=== PATIENT | female | born 1945 | race Caucasian/White ===

== ENCOUNTER 2020-08-05 15:36 | Inpatient (IN) | payer OTHER ==
--- OUTSIDE RECORDS SUMMARY | 2020-08-05 18:13 | XMS REPORT | Continuity of Care Document ---
:1945 Author Organization [facility] t Address [address] [place] [address] Care Team Providers Name Role Phone Sylvain Elise Primary Care Physician Claudio MUÑIZ Attending Clinician BENNIE BERNABE Attending Clinician Unavailable BENNIE BERNABE Admitting Clinician Unavailable Problems Condition Condition Condition Status Onset Resolution Last Treating Co mments Source Name Details Category Date Date Treatment Clinician Date Wound Wound Disease Active [facility] infection infection 3-07 [facility] Center Infection Infection Disease Active [facility] Postoperat Postoperat Disease Active 2015-[address] marianne marianne 0-12 [facility] - infection infection 00:00: Medi bebeto of wound of wound 00 Center of sternum of sternum Chest Chest Disease Active [facility] pain, pain, 8-29 [facility] - unspecifie unspecifie 00:00: Me dical d type d type 00 Center Ischemic Ischemic Disease [facility] heart heart 8[facility]17 [facility] - disease disease 00:00: Medical 00 Center Allergies, Adverse Reactions, Alerts Allergy Allergy Status Severity Reaction(s) Onset Inactive Treating Comm ents Source Name Type Date Date Clinician Ciproflo Propensi Active Itching, 2015-[address] [facility] [address] xacin ty to Rash 0-11 [facility] - adverse 00:00: Medical reaction 00 Center s Metronid Propensi Active Itching, 2015-[address] [facility] azole ty to Rash 0-11 [facility] - adverse 00:00: Medical reaction 00 Center s Amoxicil Drug Active Itching, [facility] miguel Allergy Rash 8-17 [facility] - 00:00: Medical 00 Center Social History Social Habit Start Date Stop Date Quantity Comments Source Sex Assigned At [facility] Medical [place] Tobacco use and 2017-06-05 2017-06-05 Never used [facility] kes - exposure 00:00:00 00:00:00 Medical [place] Alcohol intake 2017-06-05 2017-06-05 Current [facility] - 00:00:00 00:00:00 non-drinker of Medical Ce nter alcohol (finding) Smoking Status Start Date Stop Date Source [facility] smoker [facility] [place] Medications Ordered Filled Start Stop Current Ordering Indication Dosage Frequency Signature Comments Components Source Medication Medication Date Date Medication? Clinician (SIG) Name Name sertraline Yes 50mg QD Take [address] (ZOLOFT) 50 3-19 by mouth [facility] - MG tablet 07:32: daily. Medica l 49 [place] magnesium Yes 400mg QD Take [address] [facility] [address] oxide 3-19 mg by [facility] - (MAG-OX) 07:32: mouth Medical 400 mg 49 every Center tablet evening. amLODIPine Yes 2.5mg QD Take 2.[address] (NORVASC) 3-19 mg by [facility] - 2.5 MG 07:32: mouth Medical tablet 49 daily. [place] aspirin 81 Yes 81mg QD Take [address] MG EC 3-19 by mouth [facility] - tablet 07:32: daily. Medical [address] [place] [address] furosemide Yes 20mg QD Take [address] (LASIX) 20 3-19 by mouth [facility] - MG tablet 07:32: daily. Medica l 49 [place] atorvastati Yes 40mg QD Take [address] [facility] [address] n (LIPITOR) 3-19 by mouth [facility] - 40 MG 07:32: daily. Medical tablet 49 [place] metoprolol Yes 25mg Take [address] (LOPRESSOR) 3-19 by mouth [facility] - 25 MG 07:32: once in Medical tablet 49 evening . [place] cholecalcif Yes 5000U QD Take 5,[address] [facility] [address] jonel, 3-19 Units by [facility] - vitamin D3, 07:32: mouth Medic al 5,000 unit 49 daily. Center Tab thyroid, 2015- Yes 60mg QD Take [address] [facility] pork, 60 mg 0-18 tablet (60 [facility] kes - Tab 00:00: mg total) Medical 00 by mouth Center daily. Procedures This patient has no known procedures. Encounters Start End Encounter Admission Attending Care Care Encounter Source Date/Time Date/Time Type Type Clinicians Facility Department ID 2018-10-12 2018-10-13 Emergency [facility] [id number] 21:29:48 00:37:00 [place] [id number] [place] [id number] [place] [id number] Results Test Description Test Time Test Comments Results Result Comments Source AFB CULTURE + SMEAR 2017-07-12 12:45:00 Test Item Value Reference Range Interpretation Comme nts CULTURE (BEAKER) (test code = 1095) No acid-fast bacilli isolated i n 42 days AFB SMEAR (BEAKER) (test code = 994) No acid fast bacilli seen FUNGUS CULTURE + [id number] 15:05:00 Test Item Value Reference Range Interpretation Comments CULTURE (BEAKER) (test No fungus isolated in code = 1095) 28 days FUNGUS SMEAR (BEAKER) No fungi seen (test code = 1406) ANAEROBIC [id number] 00:12:00 Test Item Value Reference Range Interpretation Comments CULTURE (BEAKER) (test No anaerobes isolated code = 1095) SURGICALLY OBTAINED CULTURE + GRAM [id number] 12:50:00 Test Item Value Reference Range Interpretation Comments CULTURE (BEAKER) (test code No growth = 1095) GRAM STAIN RESULT (BEAKER) No WBCs (test code = 1123) GRAM STAIN RESULT (BEAKER) No organisms seen (test code = 90009) SPIN/CONCENTRATION [id number] 03:52:00 Test Item Value Reference Range Interpretation Comments CONCENTRATION CHARGED (BEAKER) (test Done code = 2657) BASIC METABOLIC [id number] 05:32:00 Test Item Value Reference Range Interpretation Comments SODIUM (BEAKER) 137 meq/L 136-145 (test code = 381) POTASSIUM (BEAKER) 4.6 meq/L 3.5-5.1 (test code = 379) CHLORIDE (BEAKER) 103 meq/L 98-107 (test code = 382) CO2 (BEAKER) (test 24 meq/L 22-29 code = 355) BLOOD UREA NITROGEN 13 mg/dL 7-21 (BEAKER) (test code = 354) CREATININE (BEAKER) 0.89 mg/dL 0.57-1.25 (test code = 358) GLUCOSE RANDOM 90 mg/dL 70-105 (BEAKER) (test code = 652) CALCIUM (BEAKER) 9.4 mg/dL 8.4-10.2 (test code = 697) EGFR (BEAKER) (test 62 mL/min/1.73 ESTIMA KING GFR IS code = 1092) sq m NOT ACCURATE CREATININE CLEARANCE IN PREDICTING GLOMERULAR FILTRATION RATE . ESTIMATED GFR I S NOT APPLICABLE FOR DIALYSIS PATIEN TS. [id number] 05:24:00 Test Item Value Reference Range Interpretation Comments PROTIME (BEAKER) (test code = 14.7 seconds 11.7-14.7 759) INR (BEAKER) (test code = 370) 1.2 <=5.9 PARTIAL THROMBOPLASTIN TIME 33.8 seconds 22.5-36.0 (BEAKER) (test code = 760) RECOMMENDED COUMADIN/WARFARIN INR THERAPY RANGESSTANDARD DOSE: 2.0 - 3.0 Includes: PROPHYLAXIS forvenous thrombosis, systemic embolization; TREATMENT for venous thrombosis and/or pulmonary embolus.HIGH RISK: Target INR is 2.5-3.5 for patients with mechanical heart valves.CBC (HEMOGRAM ONLY)2017-05-25 05:04:00 Test Item Value Reference Range Interpretation Comments WHITE BLOOD CELL COUNT (BEAKER) 7.5 K/ L 3.5-10.5 (test code = 775) RED BLOOD CELL COUNT (BEAKER) 4.46 M/ L 3.93-5.22 (test code = 761) HEMOGLOBIN (BEAKER) (test code = 11.9 GM/DL 11.2-15.7 410) HEMATOCRIT (BEAKER) (test code = 38.4 % 34.1-44.9 411) MEAN CORPUSCULAR VOLUME (BEAKER) 86.1 fL 79.4-94.8 (test code = 753) MEAN CORPUSCULAR HEMOGLOBIN 26.7 pg 25.6-32.2 (BEAKER) (test code = 751) MEAN CORPUSCULAR HEMOGLOBIN CONC 31.0 GM/DL 32.2-35.5 L (BEAKER) (test code = 752) RED CELL DISTRIBUTION WIDTH 16.6 % 11.7-14.4 H (BEAKER) (test code = 412) PLATELET COUNT (BEAKER) (test 294 K/CU MM 150-450 code = 756) MEAN PLATELET VOLUME (BEAKER) 9.8 fL 9.4-12.3 (test code = 754) NUCLEATED RED BLOOD CELLS 0 /100 WBC 0-0 (BEAKER) (test code = 413) PLATELET AGGREGATION: FUNCTION [id number] 14:47:00 Test Item Value Reference Range Interpretation Comments WEAK ADP 64 % 60-91 RESULT(BEAKER) (test code = 2135) PLATELET FUNCTION 60-100% indicates SCREEN INTERP (BEAKER) normal platelet (test code = 2173) function [id number] Clinton Gonzales M.D. (BEAKER) (test code = (electonic signature) 0067) PLATELET COUNT AGG 309 K/CU MM 150-450 (BEAKER) (test code = 2656) for patients on clopidogrel in past two weeksCOMPREHENSIVE METABOLIC PANEL 2017-05-24 09:27:00 Test Item Value Reference Range Interpretation Comments TOTAL PROTEIN 8.6 gm/dL 6.0-8.3 H (BEAKER) (test code = 770) ALBUMIN (BEAKER) 3.8 g/dL 3.5-5.0 (test code = 1145) ALKALINE PHOSPHATASE 135 U/L 40-150 (BEAKER) (test code = 346) BILIRUBIN TOTAL 0.4 mg/dL 0.2-1.2 (BEAKER) (test code = 377) SODIUM (BEAKER) (test 139 meq/L 136-145 code = 381) POTASSIUM (BEAKER) 3.9 meq/L 3.5-5.1 (test code = 379) CHLORIDE (BEAKER) 104 meq/L 98-107 (test code = 382) CO2 (BEAKER) (test 26 meq/L 22-29 code = 355) BLOOD UREA NITROGEN 13 mg/dL 7-21 (BEAKER) (test code = 354) CREATININE (BEAKER) 0.96 mg/dL 0.57-1.25 (test code = 358) GLUCOSE RANDOM 99 mg/dL 70-105 (BEAKER) (test code = 652) CALCIUM (BEAKER) 9.3 mg/dL 8.4-10.2 (test code = 697) AST (SGOT) (BEAKER) 35 U/L 5-34 H (test code = 353) ALT (SGPT) (BEAKER) 25 U/L 6-55 (test code = 347) EGFR (BEAKER) (test 57 mL/min/1.73 ESTIMA KING GFR IS code = 1092) sq m NOT ACCURATE CREATININE CLEARANCE IN PREDICTING GLOMERULAR FILTRATION RATE . ESTIMATED GFR I S NOT APPLICABLE FOR DIALYSIS PATIEN TS. CBC W/PLT COUNT & AUTO [id number] 09:02:00 Test Item Value Reference Range Interpretation Comments WHITE BLOOD CELL COUNT (BEAKER) 7.6 K/ L 3.5-10.5 (test code = 775) RED BLOOD CELL COUNT (BEAKER) 4.54 M/ L 3.93-5.22 (test code = 761) HEMOGLOBIN (BEAKER) (test code = 12.1 GM/DL 11.2-15.7 410) HEMATOCRIT (BEAKER) (test code = 38.1 % 34.1-44.9 411) MEAN CORPUSCULAR VOLUME (BEAKER) 83.9 fL 79.4-94.8 (test code = 753) MEAN CORPUSCULAR HEMOGLOBIN 26.7 pg 25.6-32.2 (BEAKER) (test code = 751) MEAN CORPUSCULAR HEMOGLOBIN CONC 31.8 GM/DL 32.2-35.5 L (BEAKER) (test code = 752) RED CELL DISTRIBUTION WIDTH 16.6 % 11.7-14.4 H (BEAKER) (test code = 412) PLATELET COUNT (BEAKER) (test 317 K/CU MM 150-450 code = 756) MEAN PLATELET VOLUME (BEAKER) 9.6 fL 9.4-12.3 (test code = 754) NUCLEATED RED BLOOD CELLS 0 /100 WBC 0-0 (BEAKER) (test code = 413) NEUTROPHILS RELATIVE PERCENT 67 % (BEAKER) (test code = 429) LYMPHOCYTES RELATIVE PERCENT 25 % (BEAKER) (test code = 430) MONOCYTES RELATIVE PERCENT 6 % (BEAKER) (test code = 431) EOSINOPHILS RELATIVE PERCENT 2 % (BEAKER) (test code = 432) BASOPHILS RELATIVE PERCENT 1 % (BEAKER) (test code = 437) NEUTROPHILS ABSOLUTE COUNT 5.05 K/ L 1.56-6.13 (BEAKER) (test code = 670) LYMPHOCYTES ABSOLUTE COUNT 1.88 K/ L 1.18-3.74 (BEAKER) (test code = 414) MONOCYTES ABSOLUTE COUNT (BEAKER) 0.44 K/ L 0.24-0.36 H (test code = 415) EOSINOPHILS ABSOLUTE COUNT 0.11 K/ L 0.04-0.36 (BEAKER) (test code = 416) BASOPHILS ABSOLUTE COUNT (BEAKER) 0.05 K/ L 0.01-0.08 (test code = 417) IMMATURE GRANULOCYTES-RELATIVE 0 % 0-1 PERCENT (BEAKER) (test code = 2801) WOUND CULTURE + GRAM [id number] 08:06:00 Test Item Value Reference Range Interpretation Comments CULTURE (BEAKER) (test code No growth = 1095) GRAM STAIN RESULT (BEAKER) 1+ WBCs (test code = 1123) GRAM STAIN RESULT (BEAKER) No organisms seen (test code = 08292)
[2020-08-05] MEDS ORDERED: INFLUENZA VACCINE (for 3y+) 0.5 ML DOSE IMVAC ONE (19:00)
[2020-08-05] MEDS ORDERED: POLYETHYL GLY 3350 17 GM/DOSE PO PRN (19:00)
[2020-08-05] MEDS ORDERED: DIPHENHYDRAMINE 25 MG TAB/CAP PO PRN (19:00)
[2020-08-05] MEDS ORDERED: ACETAMINOPHEN 325 MG TABLET PO PRN (19:00)
[2020-08-05] MEDS ORDERED: PNEUMOCOCCAL VACCINE 0.5 ML IMVAC ONE (19:00)
[2020-08-05] MEDS ORDERED: LOPERAMIDE HCL 2 MG CAPSULE PO PRN (19:00)
[2020-08-05] MEDS ORDERED: ONDANSETRON 4 MG/2 ML VIAL IV PRN (19:00)
[2020-08-05] MEDS ORDERED: ONDANSETRON 4 MG (ODT) TAB PO PRN (19:00)
[2020-08-05] MEDS: ENOXAPARIN 40 MG/0.4 ML SQ SCH (20:00)
[2020-08-05 20:06] VITALS: BMI 30.7
[2020-08-05] MEDS ORDERED: Meropenem 1000 MG/VIAL IV SCH (21:00)
[2020-08-05 23:28] LABS: Absolute Lymphocytes (CBC) 1.7 K/uL (0.7-4.9); Basophils % 0.7 % (0-1.3); Hematocrit 40.6 % (36.0-45.0); Lymphocytes % 28.2 % (15.3-44.8); MPV 8.3 fL (7.6-11.3); RBC Red Blood Cell Count 4.56 M/uL (3.86-4.86)
[2020-08-05] MEDS: Meropenem 1,000 MG in NA CHLORIDE 0.9% 100 ML IV SCH (23:30)
[2020-08-05 23:32] LABS: Protime INR 1.16
[2020-08-05] MEDS: NACHLORIDE 0.45% 1,000 ML IV SCH (23:32)
[2020-08-05] MEDS ORDERED: Meropenem 1 GM/100 ML BAG ONE (23:41)
[2020-08-06 00:54] LABS: Albumin 3.6 g/dL (3.4-5.0); Bilirubin Direct 0.1 mg/dL (0-0.2); Bilirubin Total 0.4 mg/dL (0.2-1.0); C-Reactive Protein 9.2 mg/L (<3.00); Magnesium 2.4 mg/dL (1.8-2.4); Phosphorus 3.5 mg/dL (2.5-4.9); Potassium 3.4 mmol/L (3.5-5.1); Protein, Total 7.3 g/dL (6.4-8.2)
[2020-08-06 01:07] LABS: Thyroid Stimulating Hormone 5.25 uIU/mL (0.360-3.740)
[2020-08-06 01:07] LABS: Urine Appearance CLEAR (Clear); Urine Bilirubin NEGATIVE (Negataive); Urine Blood NEGATIVE (Negative); Urine Color YELLOW (Yellow); Urine Glucose NEGATIVE (Negative); Urine Protein NEGATIVE (Negative); Urine Specific Gravity 1.015 (1.005-1.030); Urine pH 6.5 (5.0-7.0)
[2020-08-06 01:11] LABS: Urine Microscopic Reflex ORDER UMIC
[2020-08-06 01:25] LABS: Urine Bacteria <20 /HPF (<20); Urine RBC <5 /HPF (NONE SEEN)
[2020-08-06 05:57] LABS: Absolute Lymphocytes (CBC) 1.6 K/uL (0.7-4.9); Basophils % 0.8 % (0-1.3); Hematocrit 37.9 % (36.0-45.0); Lymphocytes % 33.9 % (15.3-44.8); MPV 8.5 fL (7.6-11.3); RBC Red Blood Cell Count 4.24 M/uL (3.86-4.86)
[2020-08-06 06:05] LABS: Magnesium 2.3 mg/dL (1.8-2.4); Potassium 3.5 mmol/L (3.5-5.1)
[2020-08-06] MEDS: Meropenem 1,000 MG in NA CHLORIDE 0.9% 100 ML IV SCH ×2 (08:00→20:02)
[2020-08-06] MEDS: ENOXAPARIN 40 MG/0.4 ML SQ SCH (08:33)
[2020-08-06] MEDS ORDERED: POTASSIUM CL SA 10 MEQ TAB PO ONE (09:00)
--- NOTE | 2020-08-06 13:09 | P.PN ---
Subjective Date of Service: 08/06/20 Chief Complaint: SHE IS STABLE. WAITING FOR MRI AND PICC LINE. Subjective: Improving VARGAS HAS HAD STERNAL INFECTION YEARS AGO SINCE CABG, WIRES WERE TAKEN OUT, INFECTION HAD HEALED AT THAT TIME BUT LATER AFTER MAMMOGRAM AND NEEDLE BIOPSY AT [facility] THE INFECTION FLARED AGAIN. AREA HAS HEALED NOW BUT HER CRP AND SED RATE KEEP ON RISING DESPITE ORAL ABX DOXYCYCLIN AND LEVAQUIN LATER. WE MAY NOT SEE INFECTION ON MRI BUT I SUSPECT THAT SHE STILL HAS LOW GRADE PSEUDOMONAS INFECTION IN THE LOWER STERNAL REGION. SHE GREW THAT BACTERIA TWO YEARS AGO. Physical Examination - Vital Signs Temperature: 98.1 F Blood Pressure: 141/65 Pulse: 85 Respirations: 18 Pulse Ox (%): 95 - Physical Exam General: Oriented x3, Acute distress HEENT: Atraumatic, PERRLA, EOMI Neck: Supple, JVD not distended Respiratory: Clear to auscultation bilaterally, Normal air movement Cardiovascular: Regular rate/rhythm, Normal S1 S2 Gastrointestinal: Normal bowel sounds, No tenderness Musculoskeletal: No tenderness Integumentary: No rashes Neurological: Normal speech, Normal tone, Normal affect Lymphatics: No axilla or inguinal lymphadenopathy - Studies Laboratory Data (last 24 hrs) 08/06/20 05:15: Sodium 142, Potassium 3.5, BUN 19 H, Creatinine 0.76, Glucose 100, Magnesium 2.3 08/06/20 05:15: WBC 4.60 D, Hgb 12.6, Hct 37.9, Plt Count 183 08/05/20 23:10: Sodium 141, Potassium 3.4 L, BUN 21 H, Creatinine 0.89, Glucose 127 H, Phosphorus 3.5, Magnesium 2.4, Total Bilirubin 0.4, AST 21, ALT 19, Alkaline Phosphatase 105 08/05/20 23:10: PT 13.4 H, INR 1.16, APTT 31.2 08/05/20 23:10: WBC 5.90, Hgb 13.4, Hct 40.6, Plt Count 185 Microbiology Data (last 24 hrs): 08/05/20 19:48 Blood - Blood Anaerobic Blood Culture - Final Medications List Reviewed: Yes Assessment And Plan - Current Problems (Diagnosis) (1) 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 PLAN IS TO PUT IN PICC LINE AND GIVE 6 WEEKS OF MERREM TO ERADICATE THE BACTERIA THAT HAS BEEN REFRACTORY. SHE UNDERSTANDS. (2) Hypothyroid Current Visit: Yes Status: Chronic Plan: SHE HAS VERY MILD DISEASE BUT SHE IS ON HIGH DOSE OF THYROID FROM IN [place] AND ARMOUR FROM DR. GUZMAN. I WILL CHECK TSH AND DECIDE. I AM NOT SURE WHY SHE IS GOING TO ALTERNATIVE DOCTOR IN [place].
[2020-08-06] MEDS: SPIRONOLACTONE 25 MG TABLET PO SCH (13:12)
--- NOTE | 2020-08-06 13:25 | RAD REPORT ---
EXAM DESCRIPTION: MRI - Chest W/Wo Cont - 08/06/2020 12:57 pm CLINICAL HISTORY: r/o sternum osteo, draining soft tissue wound, sternum area pain COMPARISON: Thorax W/ Con dated 09/06/2019 TECHNIQUE: Multiplanar imaging of the sternum performed using T1 weighted, T2 haste and multiplanar postcontrast imaging. A 19 milliliter MultiHance contrast volume was utilized. FINDINGS: Numerous rounded hypointense T1/T2 foci are present in and around the sternum. These are m etal artifacts related to prior sternotomy wires/prior surgery. No abnormal marrow signal characteristics in the sternum. No cortical disruption seen. Post-contrast images show no abnormal sternum enhancement. No abscess or drainable fluid collections seen in the so ft tissues anterior to the sternum. Fatty tissues of the breast/chest are normal. No skeletal muscle signal abnormality seen. Mediastinal fatty tissues deep to the sternum also show normal signal charac teristics. IMPRESSION: No osteomyelitis of the sternum identifiable. No abscess or drainable fluid collection. No significant soft tissue signal abnormality seen.
[2020-08-06 13:39] LABS: Thyroid Stimulating Hormone 4.77 uIU/mL (0.360-3.740)
[2020-08-06] MEDS: cloNIDine HCL 0.1 MG TAB PO PRN (21:35)
[2020-08-07] MEDS: NACHLORIDE 0.45% 1,000 ML IV SCH ×2 (04:20→12:36)
[2020-08-07 05:33] LABS: Absolute Lymphocytes (CBC) 1.7 K/uL (0.7-4.9); Basophils % 0.8 % (0-1.3); Hematocrit 37.5 % (36.0-45.0); Lymphocytes % 35.6 % (15.3-44.8); MPV 8.3 fL (7.6-11.3); RBC Red Blood Cell Count 4.22 M/uL (3.86-4.86)
[2020-08-07 06:10] LABS: Magnesium 2.2 mg/dL (1.8-2.4); Potassium 3.8 mmol/L (3.5-5.1)
[2020-08-07] MEDS ORDERED: POTASSIUM CL SA 10 MEQ TAB PO ONE (09:00)
[2020-08-07] MEDS: Meropenem 1,000 MG in NA CHLORIDE 0.9% 100 ML IV SCH ×2 (10:48→22:47)
[2020-08-07] MEDS: THYROID 30 MG TAB PO SCH (10:48)
[2020-08-07] MEDS: SPIRONOLACTONE 25 MG TABLET PO SCH (10:49)
[2020-08-07] MEDS: SERTRALINE HCL 50 MG TAB PO SCH (10:49)
[2020-08-07] MEDS: ENOXAPARIN 40 MG/0.4 ML SQ SCH (10:49)
--- NOTE | 2020-08-07 13:42 | P.PN ---
Subjective Date of Service: 08/07/20 Chief Complaint: SHE IS STABLE. WAITING FOR MRI AND PICC LINE. Subjective: Improving VARGAS HAS HAD STERNAL INFECTION YEARS AGO SINCE CABG, WIRES WERE TAKEN OUT, INFECTION HAD HEALED AT THAT TIME BUT LATER AFTER MAMMOGRAM AND NEEDLE BIOPSY AT [facility] THE INFECTION FLARED AGAIN. AREA HAS HEALED NOW BUT HER CRP AND SED RATE KEEP ON RISING DESPITE ORAL ABX DOXYCYCLIN AND LEVAQUIN LATER. WE MAY NOT SEE INFECTION ON MRI BUT I SUSPECT THAT SHE STILL HAS LOW GRADE PSEUDOMONAS INFECTION IN THE LOWER STERNAL REGION. SHE GREW THAT BACTERIA TWO YEARS AGO. SHE IS STABLE, ANXIOUS. WE ARE STILL WAITING FOR PICC LINE. PLAN IS TO CONTINUE MERREM FOR 6 WEEKS. Physical Examination - Vital Signs Temperature: 98 F Blood Pressure: 136/62 Pulse: 88 Respirations: 16 Pulse Ox (%): 95 - Physical Exam General: Alert, In no apparent distress HEENT: Atraumatic, PERRLA, EOMI Neck: Supple, JVD not distended Respiratory: Clear to auscultation bilaterally, Normal air movement Cardiovascular: Regular rate/rhythm, Normal S1 S2 Gastrointestinal: Normal bowel sounds, No tenderness Musculoskeletal: No tenderness Integumentary: No rashes Neurological: Normal speech, Normal tone, Normal affect Lymphatics: No axilla or inguinal lymphadenopathy - Studies Laboratory Data (last 24 hrs) 08/07/20 05:03: Sodium 142, Potassium 3.8, BUN 15, Creatinine 0.78, Glucose 95, Magnesium 2.2 08/07/20 05:03: WBC 4.60, Hgb 12.5, Hct 37.5, Plt Count 186 Microbiology Data (last 24 hrs): 08/05/20 19:48 Blood - Blood Anaerobic Blood Culture - Final Medications List Reviewed: Yes Assessment And Plan - Current Problems (Diagnosis) (1) 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 PLAN IS TO PUT IN PICC LINE AND GIVE 6 WEEKS OF MERREM TO ERADICATE THE BACTERIA THAT HAS BEEN REFRACTORY. SHE UNDERSTANDS. (2) Hypothyroid Current Visit: Yes Status: Chronic Plan: SHE HAS VERY MILD DISEASE BUT SHE IS ON HIGH DOSE OF THYROID FROM IN [place] AND [place] FROM DR. GUZMAN. I WILL CHECK TSH AND DECIDE. I AM NOT SURE WHY SHE IS GOING TO ALTERNATIVE DOCTOR IN [place].
[2020-08-08] MEDS: cloNIDine HCL 0.1 MG TAB PO PRN (06:19)
[2020-08-08] MEDS: ENOXAPARIN 40 MG/0.4 ML SQ SCH (09:00)
[2020-08-08] MEDS: THYROID 30 MG TAB PO SCH (09:27)
[2020-08-08] MEDS: SPIRONOLACTONE 25 MG TABLET PO SCH (09:27)
[2020-08-08] MEDS: SERTRALINE HCL 50 MG TAB PO SCH (09:28)
[2020-08-08] MEDS: Meropenem 1,000 MG in NA CHLORIDE 0.9% 100 ML IV SCH (09:29)
[2020-08-08 09:58] LABS: Absolute Lymphocytes (CBC) 1.1 K/uL (0.7-4.9); Basophils % 0.9 % (0-1.3); Hematocrit 37.5 % (36.0-45.0); Lymphocytes % 26.4 % (15.3-44.8); MPV 8.5 fL (7.6-11.3); RBC Red Blood Cell Count 4.24 M/uL (3.86-4.86)
[2020-08-08 10:15] LABS: Magnesium 2.2 mg/dL (1.8-2.4); Potassium 3.8 mmol/L (3.5-5.1)
[2020-08-08 11:12] VITALS: O2SAT 94
[2020-08-08 13:12] VITALS: BP 151/65; TEMP 98.6
--- NOTE | 2020-08-09 16:11 | RAD REPORT ---
EXAM DESCRIPTION: XR Chest, 1 View CLINICAL HISTORY: The patient is 75 years old and is Female; picc line placement TECHNIQUE: Frontal view of the chest. COMPARISON: No relevant prior studies available. FINDINGS: Lungs: Unremarkable. No consolidation. Pleural space: Unremarkable. No pneumothorax. Heart: Clips overlying the cardiac silhouette. Mediastinum: Unremarkable. Bones/joints: Unremarkable. Soft tissues: Clips overlying the left lateral chest. Tubes, lines and devices: Right PICC with tip in the SVC. IMPRESSION: No acute findings in the chest. Right PICC with tip in the SVC. Electronically signed by: Kale Lau MD 08/08/2020 5:56 AM CDT Due to temporary technical issues with the PACS/Fluency reporting system, reports are being signed by the in house radiologists without review as a courtesy to insure prompt reporting. The interpreting radiologist is fully responsible for the content of the report.
[2020-08-11 11:56] LABS: Vitamin D 1,25-Dihydroxy Total 37 pg/mL (18-72); Vitamin D,1,25-OH2, D2 <8 pg/mL
== END 2020-08-08 13:59 | disposition home health service (06) | DRG 540 ==
LOC: 2ND 18:09 → OBSVTOIN 08-06 20:11
PROVIDERS: ADMIT Internal Medicine; ATTEND Internal Medicine
PROC: 02HV33Z Insertion of Infusion Device into Superior Vena Cava, Percutaneous Approach (ICD-10-PCS; principal; 2020-08-08)
DX: M86.68 Other chronic osteomyelitis, other site (principal); I50.32 Chronic diastolic (congestive) heart failure; I11.0 Hypertensive heart disease with heart failure; I25.10 Atherosclerotic heart disease of native coronary artery without angina pectoris; F41.9 Anxiety disorder, unspecified; E03.9 Hypothyroidism, unspecified; B96.5 Pseudomonas (aeruginosa) (mallei) (pseudomallei) as the cause of diseases classified elsewhere; Z88.1 Allergy status to other antibiotic agents; Z88.7 Allergy status to serum and vaccine; Z79.899 Other long term (current) drug therapy; Z88.8 Allergy status to other drugs, medicaments and biological substances; Z85.3 Personal history of malignant neoplasm of breast; Z20.822 Contact with and (suspected) exposure to COVID-19
CPT/HCPCS: 36415; 36569; 71045; 71552; 80048; 80076; 81003; 81015; 82306; 82607; 82652; 83735; 84100; 84439; 84443; 85025; 85610; 85730; 86140; 87040; 87086; 87088; A9577; G0378; G0379; J1650; J2185; Q2035; U0003

== ENCOUNTER 2020-08-26 09:01 | Day surgery (SDC) | payer OTHER ==
[2020-08-26] MEDS ORDERED: ALTEPLASE 2 MG/VIAL IV SCH ×2 (10:00→13:00)
[2020-08-26] MEDS ORDERED: WATER FOR INJ,STERILE 10 ML IV SCH ×2 (10:00→13:00)
[2020-08-26 10:22] VITALS: BP 146/44; TEMP 98.8; O2SAT 96
[2020-08-26 10:23] VITALS: BMI 30.4
== END 2020-08-26 13:45 | disposition home or self-care (01) ==
LOC: DS 09:01
PROVIDERS: ATTEND Internal Medicine
DX: T82.898A Other specified complication of vascular prosthetic devices, implants and grafts, initial encounter (principal)
CPT/HCPCS: 36593; J2997 ×2

== ENCOUNTER → 2020-08-28 | Day surgery (SDC) | payer OTHER ==
[~2020-08-28] MED LIST: ALTEPLASE 2 MG/VIAL IV SCH; WATER FOR INJ,STERILE 10 ML IV SCH
[2020-08-28 16:06] VITALS: BMI 30.4
[2020-08-28 19:08] VITALS: BP 153/96; TEMP 98.2; O2SAT 100
== END ==
LOC: DS 15:50 → EDSTATUS 16:04
PROVIDERS: ATTEND Internal Medicine
DX: T82.594A Other mechanical complication of infusion catheter, initial encounter (principal)
CPT/HCPCS: J2997 ×2

== ENCOUNTER 2020-08-31 18:03 | Observation (INO) | payer OTHER ==
[2020-08-31] MEDS ORDERED: POLYETHYL GLY 3350 17 GM/DOSE PO PRN (19:00)
[2020-08-31] MEDS ORDERED: LOPERAMIDE HCL 2 MG CAPSULE PO PRN (19:00)
[2020-08-31] MEDS ORDERED: DIPHENHYDRAMINE 25 MG TAB/CAP PO PRN (19:00)
[2020-08-31] MEDS ORDERED: ONDANSETRON 4 MG (ODT) TAB PO PRN (19:00)
[2020-08-31] MEDS ORDERED: ACETAMINOPHEN 325 MG TABLET PO PRN (19:00)
[2020-08-31] MEDS ORDERED: NACHLORIDE 0.45% 1,000 ML IV SCH (19:00)
[2020-08-31] MEDS ORDERED: ONDANSETRON 4 MG/2 ML VIAL IV PRN (19:00)
[2020-08-31] MEDS ORDERED: PNEUMOCOCCAL VACCINE 0.5 ML IMVAC ONE (20:00)
--- NOTE | 2020-08-31 20:27 | RAD REPORT ---
EXAM DESCRIPTION: US - UPPER EXTREMITY VENOUS UNILATE - 08/31/2020 8:14 pm CLINICAL HISTORY: Right arm pain and swelling COMPARISON: None. TECHNIQUE: Real-time sonographic evaluation of the right upper extremity deep venous systems was per formed. FINDINGS: Normal compressibility, flow augmentation, phasic flow and spontaneous flow are identified in the right upper extremity deep venous system. No intraluminal filling defects seen. Internal jugu lar and subclavian veins are normal as well. Exam was limited due to inability to access all portions of the knee right upper extremity. IMPRESSION: No DVT identifiable in the right upper extremity.
[2020-08-31] MEDS: ENOXAPARIN 40 MG/0.4 ML SQ SCH (20:32)
[2020-08-31] MEDS: Meropenem 1 GM/100 ML BAG IV SCH (20:34)
[2020-08-31] MEDS ORDERED: ALTEPLASE 2 MG/VIAL IV SCH (21:00)
--- NOTE | 2020-08-31 21:09 | RAD REPORT ---
EXAM DESCRIPTION: RAD - Chest Pa And Lat (2 Views) - 08/31/2020 8:24 pm CLINICAL HISTORY: physician order COMPARISON: Portable August 08 TECHNIQUE: Frontal and lateral views of the chest were obtained. FINDINGS: The lungs are fibrotic. No superimposed failure, infiltrate or mass identifiable. Right-si ded line remains in place. Heart size is normal and central vasculature is within normal limits. N o pleural effusion or pneumothorax seen. No acute bony finding noted. No aortic abnormality. IMPRESSION: No acute cardiopulmonary process. No significant change from comparison study.
[2020-08-31] MEDS ORDERED: WATER FOR INJ,STERILE 10 ML IV PRN (21:11)
[2020-08-31 21:14] LABS: Absolute Lymphocytes (CBC) 1.3 K/uL (0.7-4.9); Basophils % 0.8 % (0-1.3); Lymphocytes % 28.7 % (15.3-44.8); RBC Red Blood Cell Count 4.59 M/uL (3.86-4.86)
[2020-08-31 21:18] VITALS: BMI 30.4
[2020-08-31 21:29] LABS: Magnesium 2.4 mg/dL (1.8-2.4); Potassium 4.4 mmol/L (3.5-5.1)
[2020-08-31 21:30] LABS: Protime INR 1.1
[2020-08-31 21:58] LABS: Albumin 3.7 g/dL (3.4-5.0); Bilirubin Direct 0.2 mg/dL (0-0.2); Bilirubin Total 0.7 mg/dL (0.2-1.0); Protein, Total 7.7 g/dL (6.4-8.2)
[2020-08-31 23:04] VITALS: O2SAT 99
[2020-09-01] MEDS ORDERED: Meropenem 1 GM/100 ML BAG ONE (03:16)
[2020-09-01] MEDS: Meropenem 1 GM/100 ML BAG IV SCH (03:44)
[2020-09-01 04:05] LABS: Urine Appearance CLEAR (Clear); Urine Bilirubin NEGATIVE (Negative); Urine Blood NEGATIVE (Negative); Urine Color YELLOW (Yellow); Urine Glucose NEGATIVE (Negative); Urine Protein NEGATIVE (Negative); Urine Urobilinogen 0.2 mg/dL (0.2-1.0)
[2020-09-01 04:12] LABS: Urine Microscopic Reflex NO UMIC
[2020-09-01] MEDS ORDERED: LEVOTHYROXINE SOD 0.125 MG TAB PO SCH (06:00)
[2020-09-01] MEDS ORDERED: THYROID 30 MG TAB PO SCH (06:00)
[2020-09-01 06:46] LABS: Absolute Lymphocytes (CBC) 1.3 K/uL (0.7-4.9); Lymphocytes % 28.9 % (15.3-44.8); RBC Red Blood Cell Count 4.64 M/uL (3.86-4.86)
[2020-09-01 06:54] LABS: Magnesium 2.3 mg/dL (1.8-2.4); Potassium 4.6 mmol/L (3.5-5.1)
[2020-09-01] MEDS ORDERED: MEROPENEM IV SCH (09:00)
[2020-09-01] MEDS ORDERED: SPIRONOLACTONE 25 MG TABLET PO SCH (09:00)
[2020-09-01] MEDS ORDERED: SERTRALINE HCL 50 MG TAB PO SCH (09:00)
[2020-09-01] MEDS: ENOXAPARIN 40 MG/0.4 ML SQ SCH (10:58)
[2020-09-01 13:00] VITALS: BP 168/89; TEMP 97.6
--- NOTE | 2020-09-01 13:00 | P.SSS ---
Patient History Date of Service: 09/01/20 Reason for admission: FAILURE OF PICC LINE. History of Present Illness: VARGAS HAS HAD SEVERE PSEUDOMONAS INFECTION AFTER CABG YEARS AGO. ALL HER STITCHES WERE REMOVED BUT AGAIN FLARED WHEN SHE HAD BREAST BIOPSY AT [facility], SHE LATER DEVELOPED OSTEOMYELITIS DIAGNOSED BY BONE SCAN. SINCE THEN SHE HAS BEEN ON [facility] HOME CIPRO AND IT FAILED HER CRP AND SED RATE STARTED TO RISE. SHE HAS NOT SHOWN ANY FOCAL SIGNS OF INFECTION IN THE AREA OF LOWER STERNUM WHERE OM IS LOCATED. I AM AFRAID WE CAN'T LET THE INFECTION RETURN TO THAT STAGE. THIS IS WHY I AM GIVING HER 6 WEEKS OF IV MERREM THAT WILL BE THE NEXT CHOICE ORAL ABX FAILED. HOPEFULLY THIS WILL TOTALLY ERADICATE INFECTION. SHE UNDERSTANDS ALL ABOVE. THE PICC LINE FAILED DESPITE 2 TRIALS OF OUTPATIENT CATH FLOW AND SO I HAD TO READMIT HER. SHE HAD A NEW PICC LINE AND AFTER SHE TOLERATES THE ABX SHE WILL GO HOME TODAY. I AM SEEING HER WEEKLY FOR NOW. Allergies ciprofloxacin [From Cipro] Allergy (Verified 08/26/20 10:31) Hives/Rash metronidazole [From Flagyl] Allergy (Verified 08/05/20 20:03) Hives/Rash amoxicillin Adverse Reaction (Verified 11/02/15 10:35) Hives/Rash Home Medications: Levothyroxine Sodium [Euthyrox] 37.5 mcg PO BEDTIME 08/31/20 Levothyroxine [Synthroid] 12.5 mcg PO [id number] 08/31/20 Meropenem [Merrem 1 GM/100 ML NS IVPB] 1 gm IV BID 08/31/20 Metoprolol Succinate 25 mg PO BEDTIME 08/31/20 Sertraline [Zoloft] 50 mg PO DAILY 08/31/20 Spironolactone 50 mg PO DAILY 08/31/20 Thyroid,Pork [Bolt Thyroid] 60 mg PO DAILY 08/31/20 - Past Medical/Surgical History Has patient received pneumonia vaccine in the past: No Diabetic: No -: Triple Bypass 2016 -: Hypertension -: Breast Cancer 2007 , chemo/radiation done and tumor removed on left breast -: Triple Bypass - Family History Mother -: Cancer Father -: Heart disease - Social History Smoking Status: Never smoker Alcohol use: No CD- Drugs: No Caffeine use: Yes Place of Residence: Home Physical Examination - Vital Signs Temperature: 97.6 F Blood Pressure: 168/89 Pulse: 88 Respirations: 16 Pulse Ox (%): 96 - Physical Exam General: Oriented x3, Mild distress HEENT: Atraumatic, PERRLA, Mucous membr. moist/pink, EOMI, Sclerae nonicteric Neck: Supple, 2+ carotid pulse no bruit, No LAD, Without JVD or thyroid abnormality Respiratory: Clear to auscultation bilaterally, Normal air movement Cardiovascular: Regular rate/rhythm, Normal S1 S2 Gastrointestinal: Normal bowel sounds, No tenderness Musculoskeletal: No tenderness Integumentary: No rashes Neurological: Normal gait, Normal speech, Normal strength at 5/5 x4 extr, Normal tone, Normal affect Lymphatics: No axilla or inguinal lymphadenopathy - Studies Laboratory Data (last 24 hrs) 09/01/20 06:22: Sodium 139, Potassium 4.6, BUN 18, Creatinine 0.88, Glucose 108 H, Magnesium 2.3 09/01/20 06:22: WBC 4.60, Hgb 13.9, Hct 40.0, Plt Count 187 08/31/20 21:09: PT Cancelled, INR Cancelled 08/31/20 21:09: Phosphorus 3.0, Total Bilirubin 0.7, AST 26, ALT 34, Alkaline Phosphatase 127 H 08/31/20 21:09: PT 12.7 H, INR 1.10, APTT 35.7 08/31/20 21:09: Sodium 140, Potassium 4.4, BUN 21 H, Creatinine 0.99, Glucose 92, Magnesium 2.4 08/31/20 21:09: WBC 4.60, Hgb 13.6, Hct 40.0, Plt Count 183 Microbiology Data (last 24 hrs): 08/31/20 21:09 Blood - Blood Anaerobic Blood Culture - Final - Diagnosis (Problem(s)) (1) Complication associated with peripherally inserted central catheter (PICC) Current Visit: Yes Status: Acute Plan: REINSERTED NO DVT CONFIRM CXR. Qualifiers: Encounter type: subsequent encounter Qualified Code(s): T82.9XXD - Unspecified complication of cardiac and vascular prosthetic device, implant and graft, subsequent encounter (2) Osteomyelitis of sternum Current Visit: No Status: Chronic Plan: HPI THIS IS HER BEST OPTION. - Disposition Disposition: ROUTINE DISCHARGE Condition: FAIR
--- NOTE | 2020-09-01 13:44 | RAD REPORT ---
EXAM DESCRIPTION: RAD - Chest Single View - 09/01/2020 1:31 pm CLINICAL HISTORY: PICC line placement(right upper arm) COMPARISON: August 31 TECHNIQUE: AP portable chest image was obtained 09/01/2020 1:31 pm . FINDINGS: Right upper extremity PICC line is in place. Tip is in the mid to distal SVC. No new or progressive lung parenchymal process. Cardiac silhouette is prominent but stable. No abnorm al vascular engorgement. No measurable pleural effusion and no pneumothorax. No acute bony abnormalit y seen. No acute aortic findings suspected. IMPRESSION: Right upper extremity PICC line in place with the tip in the mid to distal SVC. No new or progressive heart, vasculature or lung finding.
[2020-09-01] MEDS ORDERED: Meropenem 1 GM/100 ML BAG IV SCH (16:00)
[2020-09-01] MEDS ORDERED: METOPROLOL XL 25 MG TAB PO SCH (21:00)
[2020-09-01] MEDS ORDERED: LEVOTHYROXINE SOD 0.05 MG TABLET PO SCH (21:00)
--- NOTE | 2020-09-02 07:39 | EKG ---
Test Date: 2020-08-31 Test Time: 20:41:21 Director Toxicology: DARYL MEASUREMENT RESULTS: Intervals: Rate: 88 DE: 136 QRSD: 90 QT: 400 QTc: 484 Pound: P: 5 DE: 136 QRS: -32 T: 71 INTERPRETIVE STATEMENTS: Normal sinus rhythm Left axis deviation Abnormal ECG Compared to ECG 11/15/2015 11:00:57 Left-axis deviation now present Myocardial infarct finding no longer present ST (T wave) deviation no longer present Possible ischemia no longer present Prolonged QT interval no longer present Electronically Signed On 09-02-20 07:36:11 CDT by Sammy Bacon
[2020-09-04 16:22] LABS: Vitamin D 1,25-Dihydroxy Total 51 pg/mL (18-72); Vitamin D,1,25-OH2, D2 <8 pg/mL
== END 2020-09-01 15:43 | disposition home or self-care (01) ==
LOC: 2ND 18:03
PROVIDERS: ADMIT Internal Medicine; ATTEND Internal Medicine
DX: M86.68 Other chronic osteomyelitis, other site (principal); T82.9XXA Unspecified complication of cardiac and vascular prosthetic device, implant and graft, initial encounter; Z95.1 Presence of aortocoronary bypass graft; I10 Essential (primary) hypertension; Z20.822 Contact with and (suspected) exposure to COVID-19; Z85.3 Personal history of malignant neoplasm of breast; Z92.21 Personal history of antineoplastic chemotherapy; Z92.3 Personal history of irradiation
CPT/HCPCS: 36415; 36569; 71045; 71046; 80048; 80076; 81003; 82607; 82652; 83735; 84100; 84443; 85025; 85610; 85730; 87040; 93005; 93971; G0378; G0379; J1650; J2185; J2997; U0003

== ENCOUNTER 2022-04-20 07:11 | Day surgery (SDC) | payer OTHER ==
--- NOTE | 2022-04-19 14:19 | RAD REPORT ---
EXAM DESCRIPTION: RAD - Chest Single View - 04/19/2022 2:05 pm CLINICAL HISTORY: PREOP Chest pain. COMPARISON: Chest Single View dated 09/01/2020; Chest Pa And Lat (2 Views) dated 08/31/2020; Chest Sin gle View dated 08/08/2020; Chest Pa And Lat (2 Views) dated 12/14/2015 FINDINGS: Portable technique limits examination quality. The lungs are grossly clear. The heart is mildly enlarged. No displaced fractures. IMPRESSION: No worrisome intrathoracic abnormality.
[2022-04-20] MEDS ORDERED: Ringers Lactate 1,000 ML IV ONE (07:48)
[2022-04-20] MEDS ORDERED: propofoL 200 MG/20 ML VIAL IV ONE (08:23)
[2022-04-20] MEDS ORDERED: ONDANSETRON 4 MG/2 ML VIAL ONE (08:24)
[2022-04-20] MEDS ORDERED: FENTANYL CITR 100 MCG/2 ML ONE (08:24)
[2022-04-20] MEDS ORDERED: LIDOCAINE 2% MPF 5 ML VIAL ONE (08:24)
[2022-04-20] MEDS ORDERED: MIDAZOLAM HCL 2 MG/2 ML INJ ONE (08:24)
[2022-04-20] MEDS: CEFAZOLIN SODIUM 2 GM/VIAL ONE ×2 (08:35→08:45)
[2022-04-20] MEDS ORDERED: LIDOCAINE 1% W/EPI 1:100,000 50 ML MDV ONE (09:07)
[2022-04-20] MEDS ORDERED: dexAMETHasone 4 MG/ML VIAL ONE (09:08)
--- NOTE | 2022-04-20 09:16 | P.OP ---
Preoperative diagnosis: LEFT Posterior Shoulder Skin Cancer Postoperative diagnosis: LEFT Posterior Shoulder Skin Cancer Primary procedure: Wide local excision of LEFT Posterior Shoulder Skin Cancer Anesthesia: GETA + Local Estimated blood loss: <1cc Specimen: skin cancer, with marking suture Findings: ~0.9cm skin cancer Complications: None Transferred to: Recovery Room Condition: Good
[2022-04-20] MEDS ORDERED: KETOROLAC 30 MG/ML INJ ONE (09:24)
[2022-04-20 09:30] VITALS: TEMP 97
[2022-04-20 10:07] VITALS: BP 139/49; O2SAT 100
--- NOTE | 2022-04-20 18:59 | OP ---
Date of Procedure: 04/20/2022 Surgeon: Charles Son MD, Preoperative Diagnosis: Left posterior shoulder skin cancer. Postoperative Diagnosis: Left posterior shoulder skin cancer. Procedure Performed: Wide local excision of left posterior shoulder skin cancer. Anesthesia: General endotracheal plus local with 1% lidocaine with epinephrine. Estimated Blood Loss: Less than 1 cc. Specimen: Skin cancer with marking suture, short superior and long lateral. Findings: 0.9 cm elliptical skin cancer previously biopsy-proven skin cancer. Complications: None. The patient was transferred to recovery room in good condition. Procedure In Detail: After informed consent was obtained, the patient was brought to the operating r oom and prepped and draped in the usual sterile fashion. After adequate anesthesia was achieved, the previously biopsy-proven squamous cell carcinoma was marked with ruler and found to be 0.9 cm circum ferentially round. I took a 0.6 cm margin circumferentially around the lesion. I dissected it down making an elongated elliptical incision of approximately 1 cm in the long axis down through 0.6 to 0. 7 cm in the wide access down to subcutaneous tissues using a 15 blade. After previous marking was ac hieved, at this point I used electrocautery to dissect down circumferentially around the specimen, re moving it in the adipose plane. At this point, the marking suture was placed short superior and long lateral and sent off for pathologic examination. The area was copiously irrigated. Hemostasis was achieved with electrocautery. Slight undermining was performed circumferentially around to allow for appropriate skin closure. A 2-0 nylon suture was then used to place interrupted sutures reapproxima ting the edges and closing the skin. A sterile dressing was placed over top. The patient tolerated the procedure without evidence of complication and transferred to PACU in good condition. All counts were correct at the end of the case. TK/MODL Voice ID: [id number] Report ID: [id number]
== END 2022-04-20 10:45 | disposition home or self-care (01) ==
LOC: OR 07:11
PROVIDERS: ATTEND Surgery
PROC: 0JBF0ZZ Excision of Left Upper Arm Subcutaneous Tissue and Fascia, Open Approach (ICD-10-PCS; principal; 2022-04-20 08:30)
DX: C44.629 Squamous cell carcinoma of skin of left upper limb, including shoulder (principal)
CPT/HCPCS: 71045; 88305; 93005; J1100; J2001; J2250; J2405; J2704; J3010; J7120